=== PATIENT | male | born 1945 | race Caucasian/White ===

== ENCOUNTER 2018-04-18 14:36 | Observation (INO) | payer MEDICARE, OTHER ==
[~2018-04-18 14:36] MED LIST: ISOVUE-370 76%-LOCM 1 ML ONE
[2018-04-18] MEDS ORDERED: Ondansetron PF 4 MG/2 ML Vial ONE (15:12)
[2018-04-18 15:22] LABS: #Basophils 0.1 thou/uL (0.0-0.2); #Eosinphils 0.1 thou/uL (0.0-0.7); #Lymphocytes 1.8 thou/uL (1.20-3.40); #Monocytes 0.5 thou/uL (0.11-0.59); #Neutrophils 8.5 thou/uL (1.40-6.50); %Basophils 0.5 % (0.0-1.0); %Eosinophils 0.6 % (0.0-10.0); %Lymphocytes 16.2 % (21.0-51.0); %Monocytes 4.4 % (0.0-10.0); %Neutrophils 78.3 % (42.0-75.0); Mean Corpuscular HGB CONC 32.5 g/dL (32.0-36.0); Mean Corpuscular Hemoglobin 28.3 pg (27.0-31.0); Mean Platelet Volume 7.8 fL (7.4-10.4); Platelet Count 289 thou/uL (130-400); RBC Distribution Width 12.4 % (11.5-14.5); Red Blood Cell (RBC) Count 5.65 mill/uL (4.70-6.10); White Blood Cell (WBC) Count 10.8 thou/uL (4.8-10.8)
--- NOTE | 2018-04-18 15:38 | RAD ---
CHEST 1 VIEW: Date: 04/18/18 HISTORY: Back pain. FINDINGS: Heart size is borderline. There is an aortic stent present. The lungs are clear of any infiltrative p rocess. There are no signs of failure. IMPRESSION: No active intrathoracic disease. POS: TPC
[2018-04-18 15:43] LABS: ALT (SGPT) 21 U/L (8-55); AST (SGOT) 18 U/L (5-34); Albumin 4.5 g/dL (3.4-4.8); Alkaline Phosphatase 144 U/L (40-150); Anion Gap 21 mmol/L (10-20); BUN (Urea Nitrogen) 14 mg/dL (8.4-25.7); Bilirubin, Total 0.9 mg/dL (0.2-1.2); Calc. Creatinine Clearance 0 mL/min (70-130); Calcium 10.4 mg/dL (7.8-10.44); Carbon Dioxide 21 mmol/L (23-31); Chloride 98 mmol/L (98-107); Estimated GFR-MDRD 64; Globulin 4.3 g/dL (2.4-3.5); Glucose 153 mg/dL (83-110); Potassium 3.8 mmol/L (3.5-5.1); Protein, Total 8.8 g/dL (5.8-8.1); Sodium 136 mmol/L (136-145)
[2018-04-18] MEDS ORDERED: Morphine 4 MG/ML VIAL ONE (16:20)
[2018-04-18 16:26] LABS: INR-International Normal Ratio 1.1; PTT 26.6 SEC (22.9-36.1); Prothrombin Time 13.9 SEC (12.0-14.7)
[2018-04-18] MEDS ORDERED: Pantoprazole 40 MG VIAL ONE (17:08)
[2018-04-18] MEDS ORDERED: Promethazine HCl 25 MG/ML VIAL ONE (17:08)
[2018-04-18] MEDS ORDERED: Dicyclomine 20 MG TAB ONE (17:08)
[2018-04-18 17:13] LABS: Bilirubin Negative (Negative); Blood, Urine Negative (Negative); Clarity CLEAR (Clear); Glucose, Urine (Dipstick) Negative (Negative); Leukocyte Negative (Negative); Nitrite Negative (Negative); Protein, Urine (Dipstick) 30 mg/dL (Neg-Trace); Urobilinogen 0.2 mg/dL (0.2-1.0); pH, Urine 7.5 (5.0-9.0)
[2018-04-18 17:15] LABS: Bacteria/HPF None Seen HPF (None Seen); Hyaline Casts/LPF 4-6 HYALINE CAST LPF (0-3 Hyaline); Pathc Cast-AUWi Flag 0.87 (0-2.49); RBC/HPF 0-3 HPF (0-3); Squamous Epithelial 0-3 HPF (0-3); WBC/HPF 0-3 HPF (0-3)
--- NOTE | 2018-04-18 18:37 | CT ---
ABDOMEN CT WITH CONTRAST PELVIC CT WITH CONTRAST 04/18/18 HISTORY: Appendectomy. Aortic stent. Abdominal cramping since yesterday. Back pain. COMPARISON: None. TECHNIQUE: An abdomen and pelvic CT are performed with IV contrast. Coronal reformatted images are submitted for interpretation. FINDINGS: ABDOMEN CT: Partial visualization of a stent in the descending thoracic aorta. Heart size is normal. No significa nt pericardial fluid. The visualized lung bases are unremarkable. Patent portal vein. Unremarkable gallbladder. 5 mm hypodensity in the right hepatic lobe, too small t o characterize. Mild atrophy of the pancreas. Spleen is unremarkable. Symmetric attenuation of the ad renal glands. No gastrohepatic, retrocrural or periportal lymphadenopathy. Hypodensities in the left and right renal cortex compatible with cortical as well as parapelvic cysts . Bilaterally, no obstructive uropathy. There is an anterior left midline hernia containing mesenteric fat. No bowel herniation. No mesenteri c mass, lymphadenopathy, free air, or free fluid. Limited evaluation of the alimentary canal by lack of oral contrast. Gastric mucosa, duodenum, and mu ltiple normal caliber small bowel loops are identified. There is anastomosis between segments of smal l bowel in the left hemiabdomen. No associated obstruction. Ileocecal junction is unremarkable. Scatt ered fecal material in a nondistended, nondilated colon. Occasional diverticulum. No diverticulitis. CT PELVIS: No mass, lymphadenopathy, free air or free fluid. Decompressed urinary bladder, limits evaluation. Ri ght sided inguinal hernia containing mesenteric fat. No evidence of bowel herniation. There are surgi ciarra clips in the right inguinal region. No lytic or blastic lesions in the osseous structures. IMPRESSION: No acute abnormality in the abdomen or pelvis. POS: CET
[2018-04-18 19:59] LABS: Lactic Acid 1.9 mmol/L (0.5-2.2)
[2018-04-18] MEDS ORDERED: Acetaminophen 325 MG TAB PO PRN (21:05)
[2018-04-18] MEDS ORDERED: Acetaminophen 650 MG Suppository PR PRN (21:05)
[2018-04-18] MEDS ORDERED: Ondansetron PF 4 MG/2 ML Vial IVP PRN (21:05)
[2018-04-18] MEDS ORDERED: Ondansetron ODT 4 MG TAB PO PRN (21:05)
[2018-04-18] MEDS ORDERED: traMADol HCl 50 MG TAB ONE (21:13)
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
[2018-04-18 22:34] VITALS: BMI 31.6
[2018-04-19] MEDS ORDERED: traZODone HCl 50 MG TAB PO PRN (00:44)
[2018-04-19] MEDS ORDERED: Bisacodyl 5 MG TAB PO PRN (00:44)
[2018-04-19] MEDS: Morphine 4 MG/ML VIAL SLOW IVP PRN ×2 (04:42→10:17)
[2018-04-19 05:37] LABS: #Basophils 0.1 thou/uL (0.0-0.2); #Eosinphils 0.1 thou/uL (0.0-0.7); #Lymphocytes 2.3 thou/uL (1.20-3.40); #Monocytes 0.9 thou/uL (0.11-0.59); #Neutrophils 6.8 thou/uL (1.40-6.50); %Basophils 0.9 % (0.0-1.0); %Eosinophils 0.6 % (0.0-10.0); %Lymphocytes 22.7 % (21.0-51.0); %Neutrophils 66.8 % (42.0-75.0); Hemoglobin 14.2 g/dL (14.0-18.0); Mean Corpuscular HGB CONC 33.3 g/dL (32.0-36.0); Mean Corpuscular Volume 87.1 fL (78.0-98.0); Platelet Count 257 thou/uL (130-400); RBC Distribution Width 12.5 % (11.5-14.5); Red Blood Cell (RBC) Count 4.89 mill/uL (4.70-6.10); White Blood Cell (WBC) Count 10.2 thou/uL (4.8-10.8)
[2018-04-19 05:50] LABS: ALT (SGPT) 17 U/L (8-55); AST (SGOT) 16 U/L (5-34); Albumin 3.8 g/dL (3.4-4.8); Alkaline Phosphatase 118 U/L (40-150); Anion Gap 12 mmol/L (10-20); BUN (Urea Nitrogen) 14 mg/dL (8.4-25.7); Bilirubin, Total 0.9 mg/dL (0.2-1.2); Calc. Creatinine Clearance 90 mL/min (70-130); Calcium 9.5 mg/dL (7.8-10.44); Carbon Dioxide 28 mmol/L (23-31); Chloride 100 mmol/L (98-107); Estimated GFR-MDRD 64; Globulin 3.5 g/dL (2.4-3.5); Glucose 113 mg/dL (83-110); Potassium 4.4 mmol/L (3.5-5.1); Protein, Total 7.3 g/dL (5.8-8.1); Sodium 136 mmol/L (136-145)
[2018-04-19] MEDS: Gabapentin 100 MG CAP PO SCH ×2 (08:14→14:21)
[2018-04-19] MEDS: Ferrous Sulfate 325 MG TAB PO SCH ×2 (08:14→17:45)
[2018-04-19] MEDS: Dicyclomine 20 MG TAB PO SCH ×3 (08:15→17:45)
[2018-04-19] MEDS ORDERED: Lisinopril/Hydrochlorothiazide 20/25 mg Tablet PO SCH (09:00)
[2018-04-19] MEDS ORDERED: Enoxaparin Sodium 40 MG/0.4 ML SYRINGE SC SCH (09:00)
[2018-04-19] MEDS ORDERED: FLUoxetine HCl 20 MG CAP PO SCH (09:00)
[2018-04-19] MEDS ORDERED: Aspirin 81 mg Enteric Coated Tablet PO SCH (09:00)
[2018-04-19] MEDS ORDERED: Cyanocobalamin (Vitamin B-12) 1,000 MCG TAB PO SCH (09:00)
[2018-04-19] MEDS ORDERED: Famotidine/PF 20 mg/2ml Vial SLOW IVP SCH (09:00)
[2018-04-19] MEDS: hydrALAZINE 20 MG/ML VIAL ONE ×2 (11:24→11:25)
[2018-04-19] MEDS ORDERED: hydrALAZINE 20 MG/ML VIAL SLOW IVP SCH (11:30)
--- NOTE | 2018-04-19 11:50 | PDOC.PN ---
- Subjective Encounter Start Date: 04/19/18 Encounter Start Time: 11:48 Mr. Sanchez was seen today in follow-up he says he had an episode of abdominal pain this morning. He says the nausea and vomiting has resolved. He says the abdominal pain is in the lower abdomen, and he ahs difficulty describing it. - Objective Resuscitation Status - Order Detail: 04/18/18 21:05 Resuscitation Status Routine Co-Sign Provider: Resuscitation Status: FULL: Full Resuscitation Discussed with: Patient and IRLANDA Reviewed: Yes Vital Signs & Weight: Vital Signs (12 hours) Temp Pulse Resp BP Pulse Ox 04/19/18 07:59 98.3 F 57 L 18 193/89 H 95 04/19/18 04:16 98.3 F 64 20 167/75 H 97 Weight Weight 232 lb 14.4 oz I&O: 04/18/18 04/19/18 04/20/18 06:59 06:59 06:59 Intake Total 600 240 Output Total 675 Balance -75 240 Result Diagrams: 04/19/18 04:48 04/19/18 04:48 Phys Exam - Physical Examination HEENT: PERRLA Respiratory: no wheezing, no rales, no rhonchi, clear to auscultation bilateral Cardiovascular: RRR, no significant murmur, no rub Gastrointestinal: soft, positive bowel sounds + lower abdominal tenderness Musculoskeletal: no edema, edema present Dx/Plan (1) Abdominal pain Code(s): R10.9 - UNSPECIFIED ABDOMINAL PAIN Status: Acute (2) Hypertension Code(s): I10 - ESSENTIAL (PRIMARY) HYPERTENSION Status: Chronic - Plan * Abdominal pain- ? etiology- possibly due to Gastroenteritis, vs. Intermittent obstruction due to scar tissue from his previous abdominal surgery- will try advancing his diet.
[2018-04-19] MEDS ORDERED: hydrALAZINE 25 MG TAB PO SCH (15:00)
[2018-04-19 16:16] VITALS: BP 177/88; TEMP 97.8
[2018-04-19] MEDS ORDERED: Prazosin HCl 1 MG CAP PO SCH (21:00)
[2018-04-19] MEDS ORDERED: Atorvastatin Calcium 40 MG TAB PO SCH (21:00)
--- NOTE | 2018-04-20 16:18 | DIS ---
DATE OF ADMISSION: 04/18/2018 DATE OF DISCHARGE: 04/19/2018 PRIMARY CARE PHYSICIAN: The patient's primary care is at the [facility]. DISCHARGE DISPOSITION: Home. PRIMARY DISCHARGE DIAGNOSES: 1. Abdominal pain, possible gastroenteritis. 2. Hypertension. 3. History of post-traumatic stress disorder. 4. History of nephrolithiasis. DISCHARGE MEDICATIONS: Include; 1. Trazodone 100 mg at bedtime. 2. Sildenafil 20 mg p.r.n. 3. Salsalate 500 mg t.i.d. p.r.n. 4. Ranitidine 150 mg twice a day. 5. Prazosin 3 mg at bedtime. 6. Lisinopril/hydrochlorothiazide 20/25 one tablet daily. 7. Gabapentin 100 mg t.i.d. 8. Fluoxetine 80 mg daily. 9. Ferrous sulfate 325 mg twice daily. 10. Vitamin B12 of 1000 mcg daily. 11. Dulcolax 5 mg at bedtime. 12. Atorvastatin 80 mg at bedtime. 13. Aspirin 81 mg daily. PROCEDURES DONE DURING ADMISSION: The patient had a CT scan of the abdomen and pelvis, in which there was no abnormality identified in the abdomen or pelvis. CODE STATUS: Full code. ALLERGIES: NO KNOWN DRUG ALLERGIES. HOSPITAL COURSE: Mr. Sanchez is a pleasant 73-year-old gentleman, who presented to the emergency room with complaints of abdominal pain and vomiting. He was noted to have an elevated lactic acid, and given his history of abdominal surgeries, a CT scan of the abdomen was done, which was essentially negative. No evidence of obstruction. By the time, the patient was brought in for observation, his symptoms had relatively resolved. He was monitored overnight and the following day, his diet was advanced. He tolerated this well and was subsequently able to be discharged home in stable condition and to have close outpatient followup. Job ID: [id number]
== END 2018-04-19 19:25 | disposition home or self-care (01) ==
LOC: ERS 14:36 → 2SW 17:20
PROVIDERS: ADMIT Emergency Medicine; ATTEND Emergency Medicine
DX: R10.9 Unspecified abdominal pain (principal); R11.2 Nausea with vomiting, unspecified; I10 Essential (primary) hypertension; F43.10 Post-traumatic stress disorder, unspecified; Z87.442 Personal history of urinary calculi; Z95.828 Presence of other vascular implants and grafts; Z90.49 Acquired absence of other specified parts of digestive tract; Z79.82 Long term (current) use of aspirin; Z79.899 Other long term (current) drug therapy
CPT/HCPCS: 36415; 71045; 74177; 80053; 81003; 81015; 83605; 83690; 84484; 85025; 85610; 85730; 87086; 93005; 94760; 96365; 96372; 96375; 96376; C9113; G0378; J0360; J1650; J2270; J2405; J2550; Q0162; Q9966; S0028